=== PATIENT | female | born 1960 | race African-American/Black ===

== ENCOUNTER 2016-05-15 00:49 | Emergency (ER) | payer OTHER ==
[~2016-05-15] VITALS: Ht 157.5 cm; Wt 102.1 kg
[~2016-05-15 00:49] MED LIST: ALBUTEROL SULF8.5 GM INH; AZITHROMYCIN250 MG ORAL; IBUPROFEN600 MG ORAL; METOPROLOL TART25 MG ORAL; NAPROSYN375 M1 ORAL; NKM; PREDNISONE20 MG ORAL; RANITIDINE HCL150 MG ORAL; UNOBMED
[2016-05-15 01:24] LABS: MEAN CORPUSCULAR HEMOGLOBIN 37.1 PG (27.0-31.0); MEAN CORPUSCULAR HGB CONC 33.1 G/DL (32.0-36.0); MEAN CORPUSCULAR VOLUME 112 FL (80-99); PLATELET COUNT 182 K/UL (150-450); RED BLOOD COUNT 5.12 M/UL (4.20-5.40); RED CELL DISTRIBUTION WIDTH 15.7 % (11.6-14.8); WHITE BLOOD COUNT 7.9 K/UL (4.8-10.8)
[2016-05-15 01:44] LABS: ACETAMINOPHEN 19 ug/mL (10-30); ALANINE AMINOTRANSFERASE 43 U/L (3-33); ALCOHOL < 10 mg/dL; ANION GAP 21 (5-15); ASPARTATE AMINO TRANSFERASE 152 U/L (5-40); CALCIUM 9.4 mg/dL (8.6-10.2); CARBAMAZEPINE (TEGRETOL) < 2.0 ug/mL (4.0-12.0); CARBON DIOXIDE 25 mEQ/L (20-30); CHLORIDE 86 mEQ/L (98-107); GLOMERULAR FILTRATION RATE > 60 mL/min (>60); HEMOLYSIS 601; SODIUM 132 mEQ/L (135-145); VALPROIC ACID < 3 ug/mL (50-100)
[2016-05-15 02:05] LABS: BILIRUBIN,DIRECT 0.2 mg/dL (0.1-0.3)
[2016-05-15 02:14] VITALS: BP 145/95
[2016-05-15 02:43] LABS: BAND NEUTROPHILS % (MANUAL) 0 % (0-8); BASOPHILS % (MANUAL) 1 % (0-2); EOSINOPHILS % (MANUAL) 0 % (0-3); LYMPHOCYTES % (MANUAL) 27 % (20-45); NEUTROPHILS % (MANUAL) 56 % (45-75); PLATELET ESTIMATE ADEQUATE; TOTAL CELLS COUNTED 100
[2016-05-15 02:43] LABS: ACETAMINOPHEN < 10 ug/mL (10-30); ALANINE AMINOTRANSFERASE 38 U/L (3-33); ALBUMIN/GLOBULIN RATIO 1.2 (1.0-2.7); ALCOHOL < 10 mg/dL; ANION GAP 19 (5-15); ASPARTATE AMINO TRANSFERASE 97 U/L (5-40); BILIRUBIN,DIRECT 0.5 mg/dL (0.1-0.3); CALCIUM 9.6 mg/dL (8.6-10.2); CARBAMAZEPINE (TEGRETOL) < 2.0 ug/mL (4.0-12.0); CARBON DIOXIDE 28 mEQ/L (20-30); CHLORIDE 88 mEQ/L (98-107); CREATININE 0.9 mg/dL (0.5-0.9); GLOMERULAR FILTRATION RATE > 60 mL/min (>60); HEMOLYSIS 7; SODIUM 135 mEQ/L (135-145); TOTAL PROTEIN 7.3 g/dL (6.6-8.7); VALPROIC ACID < 3 ug/mL (50-100)
[2016-05-15 02:44] LABS: ANISOCYTOSIS 1+; MACROCYTES 2+; PLATELET MORPHOLOGY NORMAL
[2016-05-15] MEDS ORDERED: Famotidine 20 MG/ 2ML VIAL IVP ONE (03:00)
[2016-05-15] MEDS ORDERED: Tubing IV Cassette IV ONE (03:05)
--- NOTE | 2016-05-15 03:09 | Emergency Room Report ---
History of Present Illness General Chief Complaint: Seizure Source: Patient, Medical Record, EMS Present Illness HPI 55 YO F TRISTAN with alleged seizure today. Unwitnessed. EMS endorses history of seizures and ETOH abuse. Patient not apparently on any anti-epileptic currently. Patient not interested in providing HPI currently - she is not post- ictal - she believes its 1917 but knows she is in a hospital in [place]. She has a flat affect and endorses daily ETOH. She denies history of seizures herself. She is c/o stomach discomfort. But denies nausea, vomiting ,diarrhea, fever/ chills. Allergies: Coded Allergies: NO KNOWN ALLERGIES (Unverified Allergy, Unknown, 01/12/15) Patient History Past Medical History: see triage record, old chart reviewed, seizures Past Surgical History: unable to obtain Pertinent Family History: unable to obtain Social History: Reports: alcohol use Now: No Immunizations: UTD Reviewed Nursing Documentation: PMH: Agreed, PSxH: Agreed Nursing Documentation-PMH Hx Cardiac Problems: No - BRONCHITIS Hx Hypertension: Yes Hx Asthma: No - BRONCHITIS Hx Seizures: Yes Review of Systems All Other Systems: limited - Not cooperating Physical Exam Vital Signs Date Time Temp Pulse Resp B/P Pulse Ox O2 Delivery O2 Flow Rate FiO2 05/15/16 00:44 98.1 111 18 166/106 95 Room Air Sp02 EP Interpretation: reviewed, normal General Appearance: normal inspection, well appearing, no apparent distress, alert, GCS 15, non-toxic Head: normocephalic, atraumatic Eyes: bilateral eye EOMI, bilateral eye PERRL ENT: normal ENT inspection, hearing grossly normal, normal voice Neck: normal inspection, full range of motion, supple, no bony tend Respiratory: normal inspection, lungs clear, normal breath sounds, no respiratory distress, no retraction, no wheezing Cardiovascular #1: regular rate, rhythm, no edema Gastrointestinal: normal inspection, normal bowel sounds, non tender, soft, no mass, no guarding, no hernia, no pulsatile mass, no rebound Rectal: normal exam, deferred Genitourinary: no CVA tenderness Musculoskeletal: normal inspection, back normal, normal range of motion, Nelsy' s Sign negative Neurologic: alert, responsive, policyholder information clerk III-XII nml as tested, motor strength/tone normal, normal gait, speech normal Psychiatric: normal inspection, judgement/insight normal, mood/affect normal, no suicidal/homicidal ideation, no delusions Skin: normal inspection, normal color, no rash Medical Decision Making Diagnostic Impression: Primary Impression: Altered mental status Qualified Codes: R41.82 - Altered mental status, unspecified Additional Impressions: Hypokalemia Alcohol abuse Seizure ER Course 55 YO F with ?seizure at home, continued ETOH abuse. Atraumatic. VSS. Afebrile No focal deficits here. PLAN Cardiac, O2 monitor, anti-epileptic levels, labs, CXR, EKG EKG Diagnostic Results Rate: tachycardiac Rhythm: NSR ST Segments: no acute changes Other Impression PVCs ASA given to the pt in ED: No Rhythm Strip Diag. Results EP Interpretation: yes Rate: 89 Rhythm: no ectopy Reevaluation Time: 03:06 Last Vital Signs Date Time Temp Pulse Resp B/P Pulse Ox O2 Delivery O2 Flow Rate FiO2 05/15/16 02:14 99.4 88 26 145/95 94 Room Air Status: improved Reevaluation Impression Labs: No leuks. Likely hemoconcentrated H&H. ETOH and anti-epileptic levels are 0. Mild transaminitis. EKG: NSR, PVCs A: Patient still a bit confused. Not post-ictal. HypoK tx orally Abd is non-focal, doubt acute bacterial or surgical process. ?ETOH gastritis. Received IV pepcid UA negative for UTI Endorsed to Dr Ball at [facility] at 535am Disposition: ADMITTED INPATIENT Condition: Serious Referrals: [facility],REFERRING (PCP) CHESTER RAJPUT M.D. May 15, 2016 03:09
[2016-05-15] MEDS ORDERED: PANTOPRAZOLE SO40 MG ORAL (04:00)
[2016-05-15] MEDS ORDERED: FAMOTIDINE20 MG ORAL (04:00)
[2016-05-15] MEDS ORDERED: LEVETIRACETAM500 MG ORAL (04:00)
[2016-05-15] MEDS ORDERED: METOPROLOL TART50 M1 ORAL (04:00)
[2016-05-15] MEDS ORDERED: HYDROCHLOROTHIA50 MG ORAL (04:00)
[2016-05-15] MEDS ORDERED: ASPIRIN EC325 MG ORAL (04:00)
[2016-05-15] MEDS ORDERED: AMOX TR-K CLV1 EAC2 ORAL (04:00)
[2016-05-15] MEDS ORDERED: CARVEDILOL3.125 MG ORAL (04:00)
[2016-05-15] MEDS ORDERED: LOPERAMIDE2 MG PO (04:00)
[2016-05-15] MEDS ORDERED: LISINOPRIL5 MG ORAL (04:00)
[2016-05-15 04:03] VITALS: BP 146/81
[2016-05-15 04:48] LABS: APPEARANCE,URINE CLEAR; KETONES,URINE 1+ (NEGATIVE); LEUKOCYTE ESTERASE ,URINE 1+ (NEGATIVE); NITRITE,URINE NEGATIVE (NEGATIVE); PH,URINE 6 (4.5-8.0); PROTEIN,URINE 1+ (NEGATIVE); UROBILINOGEN,URINE NORMAL MG/DL (0.0-1.0)
[2016-05-15 05:10] LABS: BACTERIA,URINE OCCASIONAL /HPF; RBC,URINE 0-2 /HPF (0 - 2); SQUAMOUS EPITHELIAL CELL,UR FEW /LPF (NONE/OCC)
[2016-05-15 05:11] LABS: HYALINE CASTS, URINE 0-2 /LPF
[2016-05-15 05:42] VITALS: BP 150/85
[2016-05-15 06:17] VITALS: BP 150/85
--- NOTE | 2016-05-15 15:01 | Cardiology Report ---
APPROVED REPORT EKG Measurement Heart [id number] OH [id number] [id number] Sinus tachycardia with occasional premature ventricular complexes Abnormal ECG
--- NOTE | 2016-05-19 10:32 | Diagnostic Imaging Report ---
Indication: Chest pain Technique: One view of the chest Comparison: none Findings: Inspiration is suboptimal, with crowding of the vascular markings at the lung bases. No focal infiltrates or effusions. Heart size is normal. No significant change Impression: Acute process
== END 2016-05-15 06:18 | disposition short-term general hospital (02) ==
LOC: EDBD 00:49 → EMR 01:20
DX: R41.82 Altered mental status, unspecified (principal); E87.6 Hypokalemia; F10.10 Alcohol abuse, uncomplicated; R56.9 Unspecified convulsions; I10 Essential (primary) hypertension
CPT/HCPCS: 36415; 71010; 80053; 80156; 80164; 80185; 80329; 81003; 82248; 82962; 85007; 85025; 93005; 96361; 96374; 99284; S0028

== ENCOUNTER 2016-12-25 12:16 | Emergency (ER) | payer OTHER ==
[~2016-12-25] VITALS: Ht 167.6 cm; Wt 74.8 kg
[2016-12-25 12:16] VITALS: BP 143/100
[~2016-12-25 12:16] MED LIST changes: +AMOX TR-K CLV1 EAC2 ORAL; +ASPIRIN EC325 MG ORAL; +CARVEDILOL3.125 MG ORAL; +FAMOTIDINE20 MG ORAL; +HYDROCHLOROTHIA50 MG ORAL; +LEVETIRACETAM500 MG ORAL; +LISINOPRIL5 MG ORAL; +LOPERAMIDE2 MG PO; +LORazepam Inj 2mg/ml 1ml ONE; +METOPROLOL TART50 M1 ORAL; +PANTOPRAZOLE SO40 MG ORAL
[2016-12-25] MEDS ORDERED: levETIRAcetam 1,000mg/NS100ml 100 ML IVPB ONE (12:45)
[2016-12-25 13:27] LABS: MEAN CORPUSCULAR HEMOGLOBIN 35.7 PG (27.0-31.0); MEAN CORPUSCULAR HGB CONC 32.1 G/DL (32.0-36.0); MEAN CORPUSCULAR VOLUME 111 FL (80-99); MEAN PLATELET VOLUME 5.8 FL (6.5-10.1); PLATELET COUNT 277 K/UL (150-450); RED BLOOD COUNT 4.93 M/UL (4.20-5.40); RED CELL DISTRIBUTION WIDTH 13.9 % (11.6-14.8); WHITE BLOOD COUNT 9.1 K/UL (4.8-10.8)
[2016-12-25 13:33] LABS: ALANINE AMINOTRANSFERASE 44 U/L (3-33); ALCOHOL < 10 mg/dL; ANION GAP 26 (5-15); ASPARTATE AMINO TRANSFERASE 107 U/L (5-40); CALCIUM 11.2 mg/dL (8.6-10.2); CARBON DIOXIDE 20 mEQ/L (20-30); CHLORIDE 91 mEQ/L (98-107); GLOMERULAR FILTRATION RATE > 60 mL/min (>60); HEMOLYSIS 8; POTASSIUM 3.2 mEQ/L (3.4-4.9); SODIUM 137 mEQ/L (135-145); TOTAL PROTEIN 7.9 g/dL (6.6-8.7); TROPONIN I < 0.30 ng/mL (<=0.30); VALPROIC ACID < 3 ug/mL (50-100)
[2016-12-25 14:05] VITALS: BP 97/75
[2016-12-25 14:08] LABS: BILIRUBIN,DIRECT 0.4 mg/dL (0.1-0.3)
[2016-12-25 14:10] LABS: BAND NEUTROPHILS % (MANUAL) 0 % (0-8); BASOPHILS % (MANUAL) 1 % (0-2); EOSINOPHILS % (MANUAL) 3 % (0-3); LYMPHOCYTES % (MANUAL) 33 % (20-45); NEUTROPHILS % (MANUAL) 59 % (45-75); PLATELET ESTIMATE ADEQUATE; PLATELET MORPHOLOGY NORMAL; TOTAL CELLS COUNTED 100
[2016-12-25 14:13] LABS: STOMATOCYTES 1+
--- NOTE | 2016-12-25 14:17 | Diagnostic Imaging Report ---
Indication: Chest pain Technique: One view of the chest Comparison: 05/15/2016 Findings: Suboptimal inspiration. Minimal atelectasis is seen at the left lung base. Lungs and pleural spaces are otherwise clear. Heart size is normal Impression: Minimal left basilar atelectasis. No acute process otherwise
--- NOTE | 2016-12-25 14:22 | Emergency Room Report ---
History of Present Illness General Chief Complaint: Seizure Source: EMS Present Illness HPI 56-year-old female with known seizure disorder, htn coming from home for seizure. Her family members called EMS for generalized tonic-clonic seizure lasting less than 2 minutes. States that patient is not compliant with her medication.no reported trauma. He should proceeded to have 2 more generalized tonic-clonic seizures here in the emergency room. Unknown alcohol use. Allergies: Coded Allergies: NO KNOWN ALLERGIES (Unverified Allergy, Unknown, 01/12/15) UNABLE TO ASSESS (Unverified , 12/25/16) Patient History Past Medical History: other - seizures Past Surgical History: unable to obtain Pertinent Family History: unable to obtain Last Menstrual Period: UNK Nursing Documentation-PMH Past Medical History: No History, Except For Hx Cardiac Problems: No - BRONCHITIS Hx Hypertension: Yes Hx Asthma: No - BRONCHITIS Hx Seizures: Yes Review of Systems All Other Systems: limited - pt post ictal / not providing an y more hx Physical Exam Vital Signs Date Time Temp Pulse Resp B/P Pulse Ox O2 Delivery O2 Flow Rate FiO2 12/25/16 12:11 86 16 143/100 100 Room Air 12/25/16 12:16 98.6 12/25/16 14:05 15.0 Sp02 EP Interpretation: normal General Appearance: normal inspection, no apparent distress, other - middle aged female appears post ictal, not in resp distress Head: normocephalic, atraumatic Eyes: bilateral eye EOMI, bilateral eye PERRL, bilateral eye normal inspection ENT: normal ENT inspection, normal pharynx, dry mucus membranes, other Neck: normal inspection, full range of motion, supple Respiratory: normal inspection, lungs clear, normal breath sounds, no respiratory distress, no retraction, no wheezing, speaking full sentences, chest symmetrical Cardiovascular #1: normal inspection, regular rate, rhythm, no edema, normal capillary refill Gastrointestinal: normal inspection, non tender, soft, non-distended, no guarding Musculoskeletal: normal inspection, back normal, normal range of motion, non- tender, other - no signs of trauma Neurologic: normal inspection, other - post ictal however moving all ext spont , follows commands Medical Decision Making Diagnostic Impression: Primary Impression: Epileptic seizure, generalized ER Course 56 yo F With known seizure disorder presenting with seizure Differential diagnosis Primary seizures versus electrolyte disturbance versus intracranial bleed as infectious cause Plan Obtain labs EKG chest x-ray ER course labs: mild hypokalemia, repleted. no leukocytosis CXR: no acute disease EKG: mild prolonged QT no acute STT changes Patient had 2 episodes seizures generalized tonic-clonic Patient loaded with Keppra 1000 mg Patient's vitals have been normal Disposition Patient requires admission for seizures Patient to be transferred to outside facility. Discussed with accepting hospital list reports that he will accept patient after CAT scan of head and she has had 3 seizures Signed out patient to Dr. Abimael Albert Pending CT head Pending transfer to outside hospital EKG Diagnostic Results Rate: normal Rhythm: NSR ST Segments: no acute changes Other Impression mild prolonged QT prolongation Rhythm Strip Diag. Results EP Interpretation: yes Rhythm: NSR, no PVC's, no ectopy Chest X-Ray Diagnostic Results Chest X-Ray Diagnostic Results : # of Views/Limited/Complete: 1 View Indication: Other EP Interpretation: Yes Interpretation: no acute cardiopulmonary disease Impression: No acute disease Interpreting ER Provider: Electronically signed by Nikhil Lujan M.D. Last Vital Signs Date Time Temp Pulse Resp B/P Pulse Ox O2 Delivery O2 Flow Rate FiO2 12/25/16 14:05 98.6 90 18 97/75 99 Non-Rebreather 15.0 Disposition: XFER [facility] Condition: Critical Signed Out To: Nikhil Baez M.D. Dec 25, 2016 14:22
[2016-12-25 15:00] VITALS: BP 97/72
--- NOTE | 2016-12-25 15:56 | Diagnostic Imaging Report ---
Indications: Seizure Technique: Spiral acquisitions obtained through the brain. Angled axial and coronal 5 x 5 mm slices were reconstructed. Total dose length product 1376 mGycm. CTDI vol(s) 70 mGy. Dose reduction achieved using automated exposure control Comparison: 09/19/2015 Findings: Again demonstrated is minimal prominence of the pedicles and extra axial CSF spaces and minimal periventricular deep white matter chronic ischemic change there is a tiny lacunar infarct in left basal ganglia region, also evident previously. Metallic foreign bodies are seen in the left the preseptal orbital region and deep within the lateral left orbit. The optic globes are intact. The included sinuses are clear. The mastoids are clear. The calvarium is intact. There is no significant interim change Impression: Minimal age-related changes Negative for acute intracranial bleed or mass effect Left orbital metallic foreign bodies, also previously demonstrated The CT scanner at [facility] is accredited by the [employer] and the scans are performed using protocols designed to limit radiation exposure to as low as reasonably achievable to attain images of sufficient resolution adequate for diagnostic evaluation.
[2016-12-25 16:01] VITALS: BP 112/79
[2016-12-25 17:03] VITALS: BP 117/74
[2016-12-25 19:01] VITALS: BP 138/71
--- NOTE | 2016-12-27 00:53 | Cardiology Report ---
APPROVED REPORT EKG Measurement Heart [id number] Normal sinus rhythm Low voltage QRS Nonspecific ST abnormality Prolonged QT Abnormal ECG
== END 2016-12-25 19:01 | disposition short-term general hospital (02) ==
LOC: EDBD 12:16 → EMR 13:10
DX: G40.909 Epilepsy, unspecified, not intractable, without status epilepticus (principal); E87.6 Hypokalemia; I10 Essential (primary) hypertension; J98.11 Atelectasis
CPT/HCPCS: 36415; 70450; 71010; 80053; 80164; 80184; 80185; 80329; 82248; 84484; 85007; 85025; 93005; 96360; 96375; 99285; J1953

== ENCOUNTER 2017-10-02 10:24 | Emergency (ER) | payer OTHER ==
[~2017-10-02] VITALS: Ht 170.2 cm; Wt 81.6 kg
[~2017-10-02 10:24] MED LIST changes: -LORazepam Inj 2mg/ml 1ml ONE
[2017-10-02] MEDS ORDERED: levETIRAcetam 500mg/NS100ml 100 ML IVPB ONE (10:30)
[2017-10-02 10:35] VITALS: BP 130/82
[2017-10-02 11:09] LABS: BASOPHILS % (AUTO) 1.7 % (0.0-2.0); EOSINOPHILS % (AUTO) 1.4 % (0.0-3.0); HEMATOCRIT 35.9 % (37.0-47.0); HEMOGLOBIN 11.7 G/DL (12.0-16.0); LYMPHOCYTES % (AUTO) 35.8 % (20.0-45.0); MEAN CORPUSCULAR VOLUME 108 FL (80-99); MONOCYTES % (AUTO) 6.9 % (1.0-10.0); NEUTROPHILS % (AUTO) 54.2 % (45.0-75.0); PLATELET COUNT 225 K/UL (150-450); RED BLOOD COUNT 3.33 M/UL (4.20-5.40); RED CELL DISTRIBUTION WIDTH 13.1 % (11.6-14.8); WHITE BLOOD COUNT 6.4 K/UL (4.8-10.8)
[2017-10-02 11:23] LABS: ANION GAP 17 mmol/L (5-15); BLOOD UREA NITROGEN 6 mg/dL (7-18); CALCIUM 9.3 MG/DL (8.5-10.1); CARBON DIOXIDE 19 MMOL/L (21-32); CHLORIDE 108 MMOL/L (98-107); CREATININE 0.9 MG/DL (0.55-1.30); POTASSIUM 3.6 MMOL/L (3.5-5.1); SODIUM 144 MMOL/L (136-145)
--- NOTE | 2017-10-02 12:50 | Emergency Room Report ---
History of Present Illness General Chief Complaint: Seizure Source: Patient Present Illness HPI Patient presents with seizure activity Patient was brought in by paramedics initially somewhat postictal difficult to obtain history a she has become more awake however remains a fairly poor historian patient reports that she does have history of seizures However reports that she is not taking her medication does not know the name of the medication History of present illness is somewhat limited given the patient's ability to provide history Unknown regarding any trauma there was no reports of fever No reports of vomiting or diarrhea Allergies: Coded Allergies: NO KNOWN ALLERGIES (Unverified Allergy, Unknown, 01/12/15) No Known Allergies (Unverified , 10/02/17) UNABLE TO ASSESS (Unverified , 12/25/16) Patient History Past Medical History: see triage record Pertinent Family History: none Reviewed Nursing Documentation: PMH: Agreed; PSxH: Agreed Nursing Documentation-PMH Past Medical History: No History, Except For Hx Cardiac Problems: No - BRONCHITIS Hx Hypertension: Yes Hx Asthma: No - BRONCHITIS Hx Seizures: Yes Review of Systems All Other Systems: negative except mentioned in HPI Physical Exam Vital Signs Date Time Temp Pulse Resp B/P (MAP) Pulse Ox O2 Delivery O2 Flow Rate FiO2 10/02/17 10:19 97.7 115 16 122/73 99 Room Air 97.7 Sp02 EP Interpretation: reviewed, normal General Appearance: no apparent distress Head: normocephalic, atraumatic Eyes: bilateral eye PERRL, bilateral eye EOMI ENT: dry mucus membranes Neck: supple, thyroid normal Respiratory: lungs clear Cardiovascular #1: regular rate, rhythm Gastrointestinal: non tender, soft Musculoskeletal: normal inspection Neurologic: alert, oriented x3, responsive, equipment inspector III-XII nml as tested Skin: normal color, no rash Lymphatic: no adenopathy Medical Decision Making Diagnostic Impression: Primary Impression: Epileptic seizure, generalized ER Course Given the patient's presentation It appears the patient has had previous Keppra therefore IV medication was provided Patient has become oriented and therefore CT imaging was not repeated baseline blood work is obtained Patient had another seizure activity and at this time appears to have poor outpatient disposition and will require inpatient care Labs Test 10/02/17 10:30 White Blood Count 6.4 K/UL (4.8-10.8) Red Blood Count 3.33 M/UL (4.20-5.40) Hemoglobin 11.7 G/DL (12.0-16.0) Hematocrit 35.9 % (37.0-47.0) Mean Corpuscular Volume 108 FL (80-99) Mean Corpuscular Hemoglobin 35.0 PG (27.0-31.0) Mean Corpuscular Hemoglobin Concent 32.5 G/DL (32.0-36.0) Red Cell Distribution Width 13.1 % (11.6-14.8) Platelet Count 225 K/UL (150-450) Mean Platelet Volume 5.6 FL (6.5-10.1) Neutrophils (%) (Auto) 54.2 % (45.0-75.0) Lymphocytes (%) (Auto) 35.8 % (20.0-45.0) Monocytes (%) (Auto) 6.9 % (1.0-10.0) Eosinophils (%) (Auto) 1.4 % (0.0-3.0) Basophils (%) (Auto) 1.7 % (0.0-2.0) Sodium Level 144 MMOL/L (136-145) Potassium Level 3.6 MMOL/L (3.5-5.1) Chloride Level 108 MMOL/L (98-107) Carbon Dioxide Level 19 MMOL/L (21-32) Anion Gap 17 mmol/L (5-15) Blood Urea Nitrogen 6 mg/dL (7-18) Creatinine 0.9 MG/DL (0.55-1.30) Estimat Glomerular Filtration Rate > 60 mL/min (>60) Glucose Level 91 MG/DL (74-106) Calcium Level 9.3 MG/DL (8.5-10.1) Rhythm Strip Diag. Results EP Interpretation: yes Rate: 101 Rhythm: NSR, no PVC's, no ectopy Last Vital Signs Date Time Temp Pulse Resp B/P (MAP) Pulse Ox O2 Delivery O2 Flow Rate FiO2 10/02/17 10:36 104 14 Room Air 10/02/17 10:35 130/82 98 10/02/17 10:19 97.7 97.7 Status: improved Disposition: [facility]FER [facility] Condition: Serious Referrals: [facility],REFERRING (PCP) Emma Alcala DO October 02, 2017 12:50
[2017-10-02 13:06] VITALS: BP 117/89
[2017-10-02 14:40] VITALS: BP 117/89
== END 2017-10-02 14:40 | disposition short-term general hospital (02) ==
LOC: EDBD 10:24 → EMR 11:24
DX: G40.409 Other generalized epilepsy and epileptic syndromes, not intractable, without status epilepticus (principal); I10 Essential (primary) hypertension
CPT/HCPCS: 36415; 80048; 85025; 99285; J1953

== ENCOUNTER 2017-10-13 11:22 | Emergency (ER) | payer OTHER ==
[~2017-10-13] VITALS: Ht 157.5 cm; Wt 61.2 kg
[2017-10-13 11:21] VITALS: BP 102/59
[2017-10-13] MEDS ORDERED: DiphenhydrAMINE 50mg/ml Inj IVP ONE (11:30)
[2017-10-13] MEDS ORDERED: Metoclopramide 10mg/2ml Inj IVP ONE (11:30)
[2017-10-13 12:15] LABS: ANION GAP 10 mmol/L (5-15); BLOOD UREA NITROGEN 11 mg/dL (7-18); CALCIUM 9.9 MG/DL (8.5-10.1); CARBON DIOXIDE 33 MMOL/L (21-32); CHLORIDE 84 MMOL/L (98-107); CREATININE 1.3 MG/DL (0.55-1.30); SODIUM 127 MMOL/L (136-145)
[2017-10-13 12:20] LABS: ALANINE AMINOTRANSFERASE 27 U/L (12-78); ALBUMIN 3.4 G/DL (3.4-5.0); ALBUMIN/GLOBULIN RATIO 0.7 (1.0-2.7); ALKALINE PHOSPHATASE 151 U/L (46-116); ASPARTATE AMINO TRANSFERASE 53 U/L (15-37); BILIRUBIN,TOTAL 0.8 MG/DL (0.2-1.0)
[2017-10-13 13:02] LABS: BASOPHILS % (AUTO) 0.9 % (0.0-2.0); EOSINOPHILS % (AUTO) 1.1 % (0.0-3.0); HEMATOCRIT 39.7 % (37.0-47.0); HEMOGLOBIN 13.7 G/DL (12.0-16.0); LYMPHOCYTES % (AUTO) 23.7 % (20.0-45.0); MEAN CORPUSCULAR VOLUME 102 FL (80-99); MONOCYTES % (AUTO) 14.1 % (1.0-10.0); NEUTROPHILS % (AUTO) 60.3 % (45.0-75.0); PLATELET COUNT 336 K/UL (150-450); RED BLOOD COUNT 3.91 M/UL (4.20-5.40); RED CELL DISTRIBUTION WIDTH 11.2 % (11.6-14.8); WHITE BLOOD COUNT 12.8 K/UL (4.8-10.8)
[2017-10-13 13:22] LABS: INR 1.1 (0.9-1.1)
[2017-10-13] MEDS ORDERED: levETIRAcetam 500mg/NS100ml 100 ML IVPB ONE (14:00)
[2017-10-13 14:06] VITALS: BP 112/65
--- NOTE | 2017-10-13 14:35 | Emergency Room Report ---
History of Present Illness General Chief Complaint: Abdominal Pain Source: Patient Present Illness HPI Patient presents with severe epigastric pain. She was recently discharged from the hospital. She states that she feels nauseated and weak. She's not been able to eat well because of the pain. The pain is epigastric and radiating towards her back. She denies having this pain in the past. She denies any diarrhea. The pain began this morning. The patient was seen here for uncontrolled seizures. She was transferred and hospitalized at that time. She was hospitalized [facility] [place]. The patient admits to alcohol use and smoking. No fevers, chills, chest pain, cough, sore throat, rashes, extremity pain. She does not remember when her last seizure was. Allergies: Coded Allergies: NO KNOWN ALLERGIES (Unverified Allergy, Unknown, 01/12/15) No Known Allergies (Unverified , 10/02/17) UNABLE TO ASSESS (Unverified , 12/25/16) Patient History Past Medical History: see triage record Social History: Reports: smoking, alcohol use Social History Narrative from home Now: No Reviewed Nursing Documentation: PMH: Agreed; PSxH: Agreed Nursing Documentation-PMH Hx Cardiac Problems: No - BRONCHITIS Hx Hypertension: Yes Hx Asthma: No - BRONCHITIS Hx Seizures: Yes Review of Systems All Other Systems: negative except mentioned in HPI Physical Exam Vital Signs Date Time Temp Pulse Resp B/P (MAP) Pulse Ox O2 Delivery O2 Flow Rate FiO2 10/13/17 11:09 98.4 110 18 102/59 99 98.4 Sp02 EP Interpretation: reviewed, normal General Appearance: GCS 15, mild distress, Chronically Ill Head: normocephalic, atraumatic Eyes: bilateral eye normal inspection, bilateral eye PERRL, bilateral eye other - muddy sclerae ENT: moist mucus membranes Neck: supple Respiratory: chest non-tender, lungs clear, normal breath sounds Cardiovascular #1: regular rate, rhythm Cardiovascular #2: 2+ radial (R) Gastrointestinal: normal inspection, normal bowel sounds, no mass, non- distended, no rebound, guarding - epigastric, tenderness Musculoskeletal: back normal, normal range of motion Neurologic: alert, oriented x3, grossly normal Psychiatric: depressed affect Skin: normal inspection, warm/dry Medical Decision Making Diagnostic Impression: Primary Impression: Acute pancreatitis Qualified Codes: K85.90 - Acute pancreatitis without necrosis or infection, unspecified Additional Impression: h/o seizures ER Course The patient presents with epigastric pain. She was recently discharged from hospital. Differential includes gastritis, gastroenteritis, pancreatitis, gallbladder disease amongst others. Evaluation will be with EKG, chest x-ray, abdominal film and labs. The patient will be treated with IV hydration and analgesia including Pepcid. Labs are significant for elevated lipase. Ultrasound has been ordered. Sodium and potassium both slightly low. Patient is clinically doing somewhat better however as this is initial episode of pancreatitis she needs admission to the hospital. Discussed with Dr. Vance who accepts the patient. Ultrasound without stones or cyst. Due to leukocytosis, antibiotics begun. Also IV dose of Keppra ordered. Patient improved and stable for transfer. Laboratory Tests Test 10/13/17 11:44 10/13/17 12:50 Sodium Level 127 MMOL/L (136-145) L Potassium Level 3.0 MMOL/L (3.5-5.1) L Chloride Level 84 MMOL/L (98-107) L Carbon Dioxide Level 33 MMOL/L (21-32) H Anion Gap 10 mmol/L (5-15) Blood Urea Nitrogen 11 mg/dL (7-18) Creatinine 1.3 MG/DL (0.55-1.30) Estimate Glomerular Filtration Rate 51.1 mL/min (>60) Glucose Level 154 MG/DL (74-106) H Calcium Level 9.9 MG/DL (8.5-10.1) Total Bilirubin 0.8 MG/DL (0.2-1.0) Aspartate Amino Transferase (AST) 53 U/L (15-37) H Alanine Aminotransferase (ALT) 27 U/L (12-78) Alkaline Phosphatase 151 U/L (46-116) H Troponin I 0.000 ng/mL (0.000-0.056) Total Protein 8.0 G/DL (6.4-8.2) Albumin 3.4 G/DL (3.4-5.0) Globulin 4.6 g/dL Albumin/Globulin Ratio 0.7 (1.0-2.7) L Lipase > 2000 U/L (73-393) H Serum Alcohol < 3 mg/dL White Blood Count 12.8 K/UL (4.8-10.8) H Red Blood Count 3.91 M/UL (4.20-5.40) L Hemoglobin 13.7 G/DL (12.0-16.0) Hematocrit 39.7 % (37.0-47.0) Mean Corpuscular Volume 102 FL (80-99) H Mean Corpuscular Hemoglobin 35.1 PG (27.0-31.0) H Mean Corpuscular Hemoglobin Concent 34.5 G/DL (32.0-36.0) Red Cell Distribution Width 11.2 % (11.6-14.8) L Platelet Count 336 K/UL (150-450) Mean Platelet Volume 6.1 FL (6.5-10.1) L Neutrophils (%) (Auto) 60.3 % (45.0-75.0) Lymphocytes (%) (Auto) 23.7 % (20.0-45.0) Monocytes (%) (Auto) 14.1 % (1.0-10.0) H Eosinophils (%) (Auto) 1.1 % (0.0-3.0) Basophils (%) (Auto) 0.9 % (0.0-2.0) Prothrombin Time 11.4 SEC (9.30-11.50) Prothrombin Time INR 1.1 (0.9-1.1) PTT 28 SEC (23-33) EKG Diagnostic Results Rate: normal Rhythm: NSR ST Segments: no acute changes Rhythm Strip Diag. Results EP Interpretation: yes Rhythm: NSR, no PVC's, no ectopy Chest X-Ray Diagnostic Results Chest X-Ray Diagnostic Results : Chest X-Ray Ordered: Yes # of Views/Limited/Complete: 1 View Indication: Other EP Interpretation: Yes Interpretation: no consolidation, no effusion, no pneumothorax Impression: No acute disease Electronically Signed by: Electronically signed by Evaristo Olsen MD Other X-Ray Diagnostic Results Other X-Ray Diagnostic Results : X-Ray ordered: Abdomen # of Views/Limited Vs Complete: 1 View Indication: Pain Interpretation: nonspecific bowel gas, no sbo, other - No masses Impression: Other Electronically Signed by: Electronically signed by Evaristo Olsen MD CT/MRI/US Diagnostic Results CT/MRI/US Diagnostic Results : Imaging Test Ordered: Ultrasound Impression no cyst, dilated pancreatic duct, no stones Last Vital Signs Date Time Temp Pulse Resp B/P (MAP) Pulse Ox O2 Delivery O2 Flow Rate FiO2 6/4/18 16:36 98.4 89 16 110/60 100 Room Air 98.4 Status: improved Disposition: XFER [facility] Condition: Serious Referrals: NON PHYSICIAN (PCP) Evaristo Olsen M.D. Oct 13, 2017 14:35
--- NOTE | 2017-10-13 15:18 | Diagnostic Imaging Report ---
Indication: Abdominal pain Technique: Supine view of the abdomen Comparison: none Findings: The bowel gas pattern is unremarkable. No unusual masses or calcifications. Impression: Negative
--- NOTE | 2017-10-13 15:19 | Diagnostic Imaging Report ---
Indication: Chest pain Technique: One view of the chest Comparison: 12/25/2016 Findings: Linear atelectasis is seen at both lung bases. The heart size is normal. The upper mediastinum is unremarkable. Impression: Bibasilar atelectasis. No acute process otherwise
[2017-10-13] MEDS ORDERED: Cefepime HCl 1 GM in D5W 55 ML IVPB ONE (15:45)
[2017-10-13 16:07] VITALS: BP 110/60
[2017-10-13 16:36] VITALS: BP 110/60
--- NOTE | 2017-10-13 16:47 | Diagnostic Imaging Report ---
Indication: Abdominal pain, elevated lipase, pancreatitis Technique: Alexis-scale and duplex images of the upper abdomen were obtained Comparison: Findings: Gallbladder is unremarkable, without stones, wall thickening, nor pericholecystic fluid.. Nonshadowing nonmobile echogenic focus is seen within the gallbladder, presumably a small polyp. This measures approximately 4 mm in diameter. Sonographic Jones's sign is negative. Common bile duct measures 4 mm in diameter. No intrahepatic biliary ductal dilatation. Liver demonstrates normal echogenicity, no focal abnormality. Portal vein and hepatic veins are patent. Pancreas is demonstrates slightly heterogeneous echogenicity. There is mild dilatation of the pancreatic duct Spleen is unremarkable. Left kidney measures 8 point cm in length. Right kidney measures 8.8 cm length. Both kidneys demonstrate normal echogenicity. There is no hydronephrosis. No focal abnormality . Non-aneurysmal abdominal aorta . Impression: Negative for gallstones or dilated bile ducts. Probable small gallbladder wall polyp Nonspecific slight heterogeneous pancreatic echogenicity, may be related to stated laboratory findings of pancreatitis. Mildly ectatic pancreatic duct, significance uncertain
--- NOTE | 2017-10-14 13:55 | Cardiology Report ---
APPROVED REPORT EKG Measurement Heart [id number] [place] 148P42 [id number] Normal sinus rhythm Nonspecific ST and T wave abnormality Prolonged QT Abnormal ECG
== END 2017-10-13 16:56 | disposition short-term general hospital (02) ==
LOC: EDBD 11:22 → EMR 11:27
DX: K85.90 Acute pancreatitis without necrosis or infection, unspecified (principal); G40.909 Epilepsy, unspecified, not intractable, without status epilepticus; F17.200 Nicotine dependence, unspecified, uncomplicated; I10 Essential (primary) hypertension; D72.829 Elevated white blood cell count, unspecified; J98.11 Atelectasis
CPT/HCPCS: 36415; 71045; 74018; 76700; 80053; 80329; 83690; 84484; 85025; 85610; 85730; 93005; 99283; 99285; J0692; J1200; J1953; J2765; S0028